=== PATIENT | male | born 2000 | race Caucasian/White ===

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

== ENCOUNTER 2023-09-27 19:20 | Emergency (ER) | payer SELFPAY ==
[2023-09-27 19:26] VITALS: BP 128/76; PULSE 92; RESP 16; TEMP 98.5; BMI 32.6
[2023-09-27] MEDS ORDERED: IBUPROFEN 600 MG TABLET (FP) PO ONE (20:58)
[2023-09-27] MEDS: IBUPROFEN 600 MG TABLET (FP) PO ONE (21:05)
== END 2023-09-27 22:15 | disposition home or self-care (01) ==
LOC: JERFT 19:20
DX: S96.911A Strain of unspecified muscle and tendon at ankle and foot level, right foot, initial encounter (principal); X50.1XXA Overexertion from prolonged static or awkward postures, initial encounter; Y93.67 Activity, basketball
CPT/HCPCS: 73610-TC-RT-FY; 73630-TC-RT-FY; 73700-TC-RT; 99284-25